=== PATIENT | male | born 1935 | race Caucasian/White ===

== ENCOUNTER 2017-01-04 07:05 | Emergency (ER) | payer OTHER ==
[2017-01-04 07:18] VITALS: BP 160/82; PULSE 92; RESP 16; TEMP 98.2; O2SAT 95
--- NOTE | 2017-01-04 08:08 | UCPHY ---
H & P Time Seen by Provider: 01/04/17 07:32 Patient Type: New HPI/ROS: This patient slipped in the driveway and fell on his left hip yesterday in the morning. He reports having minimal discomfort initially and walk without much difficulty. He awakened today with moderate pain 5/10 worse with abduction of his left hip. He feels this pain laterally around the greater trochanter and mild pain at the hip adductor muscle region. He feels more comfortable borrowing his 's walker to walk when he is able to walk without the walker this morning. Yesterday he had no significant difficulty walking. ROS: He did not strike his head. He has no headache. No neck or back pain. No chest or belly injuries. 7 point ROS is otherwise negative Past Medical/Surgical History: Hypothyroid Dyslipidemia otherwise healthy Smoking Status: Former smoker Physical Exam: Physical Exam Vital signs are normal. General: Pleasant 81-year-old male No acute distress HEENT: Atraumatic. Eyes: Pupils equal and react to light. Extraocular motions are intact. Neck: No midline tenderness Lungs: No respiratory distress. No chest wall tenderness Back: No midline tenderness Abdomen: Soft nontender Pelvis: Patient has no pain with pelvic rock or with pressure anteriorly on the pubic symphysis. He has mild left lateral hip tenderness. There is no foreshortening of the leg or malrotation. No pain with passive external rotation. He does have mild pain with passive or active flexion of the hip and with abduction of the hip. Cardiac: Brisk capillary refill is intact throughout. Pulses are 2+ and symmetric in the affected extremity. Skin: No rash or pallor. Neuro: Alert and oriented x3 with no sensorimotor deficits. Initial differential diagnosis: Hip fracture, hip contusion, adductor muscle strain versus tendon strain Constitutional: Initial Vital Signs Temperature (C) 36.8 C 01/04/17 07:17 Heart Rate 92 01/04/17 07:17 Respiratory Rate 16 01/04/17 07:17 Blood Pressure 160/82 H 01/04/17 07:17 O2 Sat (%) 95 01/04/17 07:17 O2 Delivery Mode Room Air Allergies/Adverse Reactions: Penicillins Allergy (Verified 01/04/17 07:24) Home Medications: Medication Instructions Recorded Methocarbamol [Robaxin 750 mg (*)] 750 - 1,500 mg PO QID PRN #30 tab 01/04/17 Simvastatin 01/04/17 Synthroid 01/04/17 Medical Decision Making - Diagnostics Imaging: Hip x-ray: Negative for fracture by my interpretation ED Course/Re-evaluation: Discussion: Findings are consistent with contusion and adductor muscle/tendon injury. No evidence of fracture no other concerning findings. Departure - Departure Disposition: Home, Routine, Self-Care Clinical Impression: Contusion, hip Qualifiers: Encounter type: initial encounter Laterality: right Qualifier Code: (S70.01XA) Contusion of right hip, initial encounter Condition: Good Instructions: Muscle Strain (ED), Hip Contusion (ED) Additional Instructions: Diagnoses: 1. Left thigh adductor muscle and tendon strain 2. Left hip contusion Plan: Ibuprofen if needed for pain Methocarbamol and Tylenol in addition if needed. No driving or alcohol on methocarbamol Follow up with Dr. Molina-orthopedic surgeon for further evaluation if you have ongoing symptoms that persist beyond the next 7-10 days despite the treatment plan. The emergency department for any significant worsening despite the treatment plan Referrals: Jessica Santo MD [Primary Care Provider] - As per Instructions Harpal Molina MD [Medical Doctor] - As per Instructions Prescriptions: Methocarbamol [Robaxin 750 mg (*)] 750 - 1,500 mg PO QID PRN #30 tab PRN Reason: Muscle Spasms - PQRS PQRS Measurement: 134: Depression screening and followup, PRIME MD-PHQ2 (12 years and older) Over the last 2 weeks, how often have you been bothered by any of the following problems? 1. Feeling down, depressed, or hopeless? 2. Little interest or pleasure in doing things? Patient answered no to both 1 and 2 130: Documentation of medications. Reviewed all patient medications, doses, route and frequency. 226: Do you smoke? [No.] 47: 65 and older: Advanced care planning. Patient designates surrogate decision maker as spouse 51: 18 years old and older with diagnosis of COPD, spirometry performance. NA 52: 18 years old and older with COPD and symptoms of COPD or FEV1<60% predicted prescribed a B Agonist. NA
--- NOTE | 2017-01-04 08:59 | DX ---
Left Hip , 2 views History: Pain post trauma. Fall on ice. Findings: Overall mineralization is normal. The femoral head is well rounded and normally located. No hip or pelvic ring fracture or dislocation is identified. The SI joints and pubic symphysis are norm ally aligned. Radioactive seeds in the prostate bed are consistent with prostate cancer therapy. No e vidence for prostate cancer metastatic disease. 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 Impression: No fracture identified.
== END 2017-01-04 08:19 | disposition home or self-care (01) ==
LOC: CED 07:05
DX: S70.02XA Contusion of left hip, initial encounter (principal); Z87.891 Personal history of nicotine dependence; Z88.0 Allergy status to penicillin; W00.9XXA Unspecified fall due to ice and snow, initial encounter
CPT/HCPCS: 73502; G0463; 99203-PO

== ENCOUNTER → 2019-04-24 | Outpatient (CLI) | payer OTHER | LOC: EMCIMAGING 10:04 | PROVIDERS: ATTEND Internal Medicine | DX: C73 Malignant neoplasm of thyroid gland (principal); E03.9 Hypothyroidism, unspecified | CPT/HCPCS: 76536-PN ==